=== PATIENT | female | born 1960 | race African-American/Black ===

== ENCOUNTER 2016-06-27 11:12 | Emergency (ER) | payer MEDICARE, OTHER ==
[~2016-06-27] VITALS: Ht 162.6 cm; Wt 88.0 kg
[~2016-06-27 11:12] MED LIST: AMIT50TA PO; CYCL10TA2 PO; HYDR-965 PO; HYDR12.58 PO; HYDR25TA PO; NAPR500T3 PO; PROM12.56 PO; TOPI-24 PO; TOPI15CA4 PO; TRAM-29 PO
--- NOTE | 2016-06-27 12:04 | EKG ---
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
[2016-06-27] MEDS ORDERED: HYDROCODONE/APAP 5/325MG TABLET. PO ONE (13:00)
[2016-06-27] MEDS ORDERED: ASPIRIN 81 MG TAB.CHEW PO ONE (13:00)
[2016-06-27] MEDS ORDERED: IPRATRPIUM/ALBUTEROL 0.5/2.5MG 3 ML NEBU. NEB ONE (13:00)
[2016-06-27 13:20] LABS: BASO % 0 % (0-3); EOS % 0 % (0-3); HEMATOCRIT 36.7 % (36.0-47.0); HEMOGLOBIN 12.4 g/dL (12.0-15.5); LYMPH # 1.8 x10^3/uL (1.0-4.8); LYMPH % 27 % (24-48); MEAN CORPUSCULAR HEMOGLOBIN 28 pg (25-35); MEAN CORPUSCULAR HGB CONC 34 g/dL (31-37); MEAN CORPUSCULAR VOLUME 83 fL (79-100); MONO % 9 % (0-9); NEUT % 63 % (31-73); PLATELET COUNT 217 x10^3/uL (140-400); RED BLOOD COUNT 4.43 x10^6/uL (3.50-5.40); RED CELL DISTRIBUTION WIDTH 13.4 % (11.5-14.5); WHITE BLOOD COUNT 6.7 x10^3/uL (4.0-11.0)
--- NOTE | 2016-06-27 13:24 | RAD ---
Indication chest pain. A single view of the chest was obtained. Comparison is made to an exam 04/25/2016. Heart and pulmonary vessels are normal. The mediastinum has a normal appearance. The lungs are clear. There has not been a significant change in the appearance of the chest compared to the previous exam. IMPRESSION: No acute or focal process. No significant change
[2016-06-27 13:37] LABS: CALCIUM 9.2 mg/dL (8.5-10.1); CREATININE 1.1 mg/dL (0.6-1.0); GFR 62.6; POTASSIUM 3.8 mmol/L (3.5-5.1)
[2016-06-27 13:40] LABS: ALBUMIN 3.1 g/dL (3.4-5.0); DIRECT BILIRUBIN 0.1 mg/dL (0.0-0.2); TOTAL BILIRUBIN 0.4 mg/dL (0.2-1.0); TOTAL PROTEIN 7.7 g/dL (6.4-8.2)
[2016-06-27 13:46] LABS: OBC FLU VALID
[2016-06-27 15:00] VITALS: BP 136/79
[2016-06-27] MEDS ORDERED: HYDR-2666 PO (15:05)
[2016-06-27] MEDS ORDERED: ASPI81TA2 PO (15:05)
--- NOTE | 2016-06-27 15:06 | PHYS DOC ---
Past Medical History Past Medical History: Anxiety, Arthritis, Hypertension Additional Past Medical Histor: osteoporosis, cystitis, DDD,RA,FIBROMYALGIA, Headaches Past Surgical History: Hysterectomy, Tubal ligation, Other Additional Past Surgical Histo: bladder sling Alcohol Use: Occasionally Drug Use: Marijuana Adult General Chief Complaint Chief Complaint: CHEST WALL PAIN HPI HPI 56-year-old female presenting to the emergency department with a cough for the past three days. She reports a sinus headache and chest pain that is sharp pleuritic and worse with the press. The pain is present for greater than 12 hours. It is intermittent and mild. It is nonradiating. She denies any unilateral leg swelling history of blood clotting disorders or family history blood clotting disorders. Review of Systems Review of Systems review of systems is negative for abdominal pain nausea vomiting fevers or chills. She denies history of blood clots. All other review of systems is negative. Current Medications Current Medications Current Medications Medications (Trade) Dose Ordered Sig/Soha Start Time Stop Time Status Last Admin Dose Admin Acetaminophen/ Hydrocodone Bitart (Lortab 5/325) 2 tab 1X ONCE 06/27/16 13:00 06/27/16 13:01 DC 06/27/16 13:07 2 TAB Albuterol/ Ipratropium (Duoneb) 3 ml 1X ONCE 06/27/16 13:00 06/27/16 13:01 DC 06/27/16 13:12 3 ML Aspirin (Children'S Aspirin) 324 mg 1X ONCE 06/27/16 13:00 06/27/16 13:01 DC 06/27/16 13:07 324 MG Allergies Allergies Allergies Coded Allergies Type Severity Reaction Last Updated Verified Penicillins Allergy Intermediate rash 05/18/13 Yes Sulfa (Sulfonamide Antibiotics) Allergy Intermediate rash 05/18/13 Yes Physical Exam Physical Exam Constitutional: Well developed, well nourished, no acute distress, non-toxic appearance. patient as well appearing in the emergency department with a nonproductive cough intermittently. HENT: Normocephalic, atraumatic, bilateral external ears normal, oropharynx moist, no oral exudates, nose normal. [] Eyes: PERRLA, EOMI, conjunctiva normal, no discharge. [] Neck: Normal range of motion, no tenderness, supple, no stridor. [] Cardiovascular:Heart rate regular rhythm, no murmur [] Lungs & Thorax: mild wheezing. No crackles. Abdomen: Bowel sounds normal, soft, no tenderness, no masses, no pulsatile masses. [] Skin: Warm, dry, no erythema, no rash. Back: No tenderness, no CVA tenderness. [] Extremities: No tenderness, no cyanosis, no clubbing, ROM intact, no edema. Neurologic: Alert and oriented X 3, normal motor function, normal sensory function, no focal deficits noted. [] Psychologic: Affect normal, judgement normal, mood normal. [] Current Patient Data Vital Signs Vital Signs Date Time Temp Pulse Resp B/P Pulse Ox O2 Delivery O2 Flow Rate FiO2 06/27/16 15:00 76 18 136/79 98 Room Air 06/27/16 11:37 97.8 97.8 Lab Values Laboratory Tests Test 06/27/16 12:55 06/27/16 13:10 Influenza Type A Antigen Negative (NEGATIVE) Influenza Type B Antigen Negative (NEGATIVE) White Blood Count 6.7x10^3/uL (4.0-11.0) Red Blood Count 4.43x10^6/uL (3.50-5.40) Hemoglobin 12.4g/dL (12.0-15.5) Hematocrit 36.7% (36.0-47.0) Mean Corpuscular Volume 83fL (79-100) Mean Corpuscular Hemoglobin 28pg (25-35) Mean Corpuscular Hemoglobin Concent 34g/dL (31-37) Red Cell Distribution Width 13.4% (11.5-14.5) Platelet Count 217x10^3/uL (140-400) Neutrophils (%) (Auto) 63% (31-73) Lymphocytes (%) (Auto) 27% (24-48) Monocytes (%) (Auto) 9% (0-9) Eosinophils (%) (Auto) 0% (0-3) Basophils (%) (Auto) 0% (0-3) Neutrophils # (Auto) 4.2x10^3uL (1.8-7.7) Lymphocytes # (Auto) 1.8x10^3/uL (1.0-4.8) Monocytes # (Auto) 0.6x10^3/uL (0.0-1.1) Eosinophils # (Auto) 0.0x10^3/uL (0.0-0.7) Basophils # (Auto) 0.0x10^3/uL (0.0-0.2) Sodium Level 144mmol/L (136-145) Potassium Level 3.8mmol/L (3.5-5.1) Chloride Level 109mmol/L (98-107) H Carbon Dioxide Level 30mmol/L (21-32) Anion Gap 5 (6-14) L Blood Urea Nitrogen 13mg/dL (7-20) Creatinine 1.1mg/dL (0.6-1.0) H Estimated GFR (Cockcroft-Gault) 62.6 Glucose Level 81mg/dL (70-99) Calcium Level 9.2mg/dL (8.5-10.1) Total Bilirubin 0.4mg/dL (0.2-1.0) Direct Bilirubin 0.1mg/dL (0.0-0.2) Aspartate Amino Transferase (AST) 29U/L (15-37) Alanine Aminotransferase (ALT) 52U/L (14-59) Alkaline Phosphatase 84U/L (46-116) Troponin I Quantitative < 0.017ng/mL (0.000-0.055) YN-Ksy-J-Type Natriuretic Peptide 15pg/mL (0-124) Total Protein 7.7g/dL (6.4-8.2) Albumin 3.1g/dL (3.4-5.0) L Lipase 104U/L (73-393) Laboratory Tests 06/27/16 13:10 Laboratory Tests 06/27/16 13:10 EKG EKG []EKG shows sinus rhythm with the regular rate. [place] is normal. Intervals are within normal limits. Patient has T wave inversions in the anterior leads. no previous available comparison at this time. Radiology/Procedures Radiology/Procedures []chest x-ray negative. Course & Med Decision Making Course & Med Decision Making Pertinent Labs and Imaging studies reviewed. (See chart for details) []56-year-old female presenting with a cough with pleuritic chest pain intermittently. On evaluation the patient's vital signs were unremarkable. Physical exam showed mild wheezing lungs. She was given nebulizer therapy in the emergency Department which improved her symptoms. bloodwork was obtained which showed normal CBC normal chemistry panel. Chest x-ray unremarkable. EKG showed nonspecific T wave inversions in the anterior leads. troponin negative. Patients pain is an present for greater than 12 hours. She was pain free on reevaluation. Patient was not hypoxic or tachycardic in our emergency department.on reevaluation, she was feeling better. She was then discharged home to follow up with her primary care physician for symptoms that are proven to the next two days. Dragon Disclaimer Dragon Disclaimer This electronic medical record was generated, in whole or in part, using a voice recognition dictation system. Departure Departure Impression: Primary Impression: Chest pain Additional Impression: Cough Disposition: HOME, SELF-CARE Condition: STABLE Referrals: YOLANDA HUNTER MD (PCP) Patient Instructions: Chest Pain (Nonspecific) Additional Instructions: Thank you for allowing us to participate in your care today. Followup with your primary care physician in 3 days if your symptoms do not improve. If you do not have a primary care provider you can ask for a list of our primary care providers. Return to the emergency department you have any new or concerning findings. This should be evaluated by the primary care physician and any necessary consulting services for continued management within a few days after discharge. Return to emergency room if you have any new or concerning symptoms including but not limited to fever, chills, nausea, vomiting, intractable pain, any new rashes, chest pain, shortness of air, uncontrolled bleeding, difficulty breathing, and/or vision loss. You may have been prescribed medication that can change in your level of thinking and ability to operate machinery. These medications include hydrocodone and Ativan. Also, Benadryl has been known to do this as well. Be sure to check with your pharmacist and ask if the medications you've prescribed can affect your level of consciousness. I recommend not operating heavy machinery or driving while on medication such as these. Scripts Hydrocodone Bit/Acetaminophen (Hydrocodone-Apap 5-325 )1 Each Tablet1 Tab PO PRN Q6HRS PRN PAIN #15 TAB Be careful as this medication may cause you to be drowsy or tired. Do not drive on this medication. Prov:MILTON TINEO MD 06/27/16 Aspirin 81 Mg Tab.chew1 Tab PO DAILY #14 TAB Ref 3 Prov:MILTON TINEO MD 06/27/16 Problem Qualifiers MILTON TINEO MD Jun 27, 2016 15:06
== END 2016-06-27 15:33 | disposition home or self-care (01) ==
LOC: ER 11:19
DX: R07.81 Pleurodynia (principal); R05 Cough; M19.90 Unspecified osteoarthritis, unspecified site; I10 Essential (primary) hypertension; M79.7 Fibromyalgia; F12.10 Cannabis abuse, uncomplicated; Z88.0 Allergy status to penicillin; Z88.2 Allergy status to sulfonamides
CPT/HCPCS: 36415; 71010; 80048; 80076; 83690; 83880; 84484; 85027; 87804; 93005; 94640; 99285; J7620

== ENCOUNTER 2016-11-27 23:21 | Emergency (ER) | payer MEDICARE, OTHER ==
[~2016-11-27] VITALS: Ht 162.6 cm; Wt 83.9 kg
[~2016-11-27 23:21] MED LIST changes: +ASPI-630 PO; +HYDR-2758 PO; -TOPI-24 PO; +TOPI25TA7 PO; -TRAM-29 PO; +TRAM-48 PO
[2016-11-27 23:49] VITALS: BP 145/76
[2016-11-28] MEDS ORDERED: BENZONATATE 100 MG CAPSULE. PO ONE (00:30)
[2016-11-28] MEDS ORDERED: AZIT250T6 PO (01:14)
[2016-11-28] MEDS ORDERED: FLUT9.9S NS (01:14)
[2016-11-28] MEDS ORDERED: BENZ100C PO (01:14)
--- NOTE | 2016-11-28 01:14 | PHYS DOC ---
Past Medical History Past Medical History: Anxiety, Arthritis, Hypertension Additional Past Medical Histor: osteoporosis, cystitis, DDD,RA,FIBROMYALGIA, Headaches Past Surgical History: Hysterectomy, Tubal ligation, Other Additional Past Surgical Histo: bladder sling Alcohol Use: Occasionally Drug Use: Marijuana Adult General Chief Complaint Chief Complaint: Congestion HPI HPI Patient is a 56 year old female who presents with cough & congestion. The patient reports symptoms x 2 weeks with cough productive of white sputum, nasal congestion, right ear pain, sore throat. She denies fever, shortness of breath , chest pain, vomiting, diarrhea. She has no history of lung disease or heart disease, nonsmoker. PCP is Dr. Hunter. Review of Systems Review of Systems Constitutional: Denies fever or chills Eyes: Denies change in visual acuity HENT: Reports nasal congestion and sore throat Respiratory: Reports cough, denies shortness of breath Cardiovascular: Denies chest pain or edema GI: Denies abdominal pain, nausea, vomiting Musculoskeletal: Denies back pain or joint pain Integument: Denies rash or skin lesions Neurologic: Denies headache Current Medications Current Medications Current Medications Medications (Trade) Dose Ordered Sig/Soha Start Time Stop Time Status Last Admin Dose Admin Benzonatate (Tessalon Perle) 100 mg 1X ONCE 11/28/16 00:30 11/28/16 00:31 DC 11/28/16 00:16 100 MG Allergies Allergies Allergies Coded Allergies Type Severity Reaction Last Updated Verified Penicillins Allergy Intermediate rash 05/18/13 Yes Sulfa (Sulfonamide Antibiotics) Allergy Intermediate rash 05/18/13 Yes Physical Exam Physical Exam Constitutional: Obese, no acute distress, non-toxic appearance. HENT: Normocephalic, atraumatic, bilateral external ears normal, TMs clear bilaterally no bulging or erythema, oropharynx moist, no tonsillar enlargement or exudate, nose normal. Eyes: PERRLA, EOMI, conjunctiva normal, no discharge. Neck: supple, no stridor. Cardiovascular: RRR, no murmurs, no edema. Lungs & Thorax: LCTAB, no wheezing, no respiratory distress. Abdomen: soft, nontender, nondistended. Skin: Warm, dry, no erythema, no rash. Back: No tenderness. Extremities: No tenderness, no edema. No calf tenderness or swelling. Neurologic: Alert and oriented X 3, no focal deficits noted. Psychologic: Affect normal, judgement normal, mood normal. Current Patient Data Vital Signs Vital Signs Date Time Temp Pulse Resp B/P (MAP) Pulse Ox O2 Delivery O2 Flow Rate FiO2 11/27/16 23:49 98.1 59 18 99 Room Air 98.1 EKG EKG [] Radiology/Procedures Radiology/Procedures CXR: interpreted by me: no cardiomegaly, no infiltrate, no pneumothorax.[] Course & Med Decision Making Course & Med Decision Making Pertinent Labs and Imaging studies reviewed. (See chart for details) The patient presents with cough & congestion. Gave tessalon perles here. CXR shows no evidence of pneumonia. O2 sat is 99% on room air. Due to duration of symptoms, will give z pack for acute bronchitis though we discussed this may still be viral. Will also give tessalon perles & flonase, recommend tylenol/ ibuprofen for pain or fever, encourage PO hydration. Follow up with PCP in 2-3 days. Come back for high fever, severe shortness of breath or chest pain, any otherwise worsening condition. Discharged home in stable condition. [] Dragon Disclaimer Dragon Disclaimer This electronic medical record was generated, in whole or in part, using a voice recognition dictation system. Departure Departure Impression: Primary Impression: Acute bronchitis Disposition: HOME, SELF-CARE Condition: STABLE Referrals: YOLANDA HUNTER MD (PCP) Patient Instructions: Acute Bronchitis, [id number] Additional Instructions: You seen in the emergency department today for cough. X-ray was normal, no pneumonia. Please take prescribed antibiotics for bronchitis. Drink fluids to stay hydrated, take Tylenol or ibuprofen for pain or fever. Use Flonase for nasal congestion and Tessalon Perles for cough. Follow-up with primary care physician if not improving in 2-3 days. Return to the emergency department for high fever, severe chest pain or shortness of breath, any otherwise worsening condition. Scripts Fluticasone Propionate (Flonase Allergy Relief) 9.9 Ml [place].susp 2 SPRAYS NS DAILY, #1 BOTTLE Prov: KASIA GRANT MD 11/28/16 Benzonatate (TESSALON PERLE) 100 Mg Capsule 100 MG PO TID Y for COUGH, #10 CAP Prov: KASIA GRANT MD 11/28/16 Azithromycin (AZITHROMYCIN TABLET) 250 Mg Tablet 1 PKG PO UD, #6 TAB Prov: KASIA GRANT MD 11/28/16 KASIA GRANT MD Nov 28, 2016 01:14
--- NOTE | 2016-11-28 07:56 | RAD ---
Indication cough. PA and lateral views of the chest were obtained and are compared to an examination 5 months earlier. The heart, pulmonary vessels and mediastinum appear normal. The lungs are clear. There is no pleural fluid or pneumothorax. The bony structures appear intact. There has not been a significant change relative to the previous exam. IMPRESSION: No acute or focal process. No significant change
== END 2016-11-28 01:19 | disposition home or self-care (01) ==
LOC: ER 23:21
DX: J20.9 Acute bronchitis, unspecified (principal); H92.01 Otalgia, right ear; I10 Essential (primary) hypertension; M06.9 Rheumatoid arthritis, unspecified; M79.7 Fibromyalgia; F12.10 Cannabis abuse, uncomplicated; Z90.710 Acquired absence of both cervix and uterus; Z98.51 Tubal ligation status; Z88.0 Allergy status to penicillin; Z88.2 Allergy status to sulfonamides
CPT/HCPCS: 71020; 99284

== ENCOUNTER 2017-06-08 09:51 | Emergency (ER) | payer OTHER, MEDICARE ==
[2017-06-08 10:35] LABS: BARBITURATES NEG (NEG); BENZODIAZEPINES NEG (NEG); CANNABINOIDS POS (NEG); COCAINE NEG (NEG); METHADONE NEG (NEG); OPIATES NEG (NEG); PHENCYCLIDINE NEG (NEG)
[2017-06-08 10:36] LABS: ETHANOL, URINE NEG (NEG)
[2017-06-08 10:37] LABS: ADD MAN DIFF? NO
[2017-06-08 10:41] LABS: BASO % 0 % (0-3); EOS % 1 % (0-3); HEMATOCRIT 37.7 % (36.0-47.0); HEMOGLOBIN 12.5 g/dL (12.0-15.5); LYMPH # 2.2 x10^3/uL (1.0-4.8); LYMPH % 33 % (24-48); MEAN CORPUSCULAR HEMOGLOBIN 28 pg (25-35); MEAN CORPUSCULAR HGB CONC 33 g/dL (31-37); MEAN CORPUSCULAR VOLUME 84 fL (79-100); MONO % 5 % (0-9); NEUT % 61 % (31-73); PLATELET COUNT 290 x10^3/uL (140-400); RED BLOOD COUNT 4.47 x10^6/uL (3.50-5.40); RED CELL DISTRIBUTION WIDTH 13.4 % (11.5-14.5); WHITE BLOOD COUNT 6.6 x10^3/uL (4.0-11.0)
[2017-06-08] MEDS: ONDANSETRON PF 4 MG/2 ML VIAL. IV (10:41)
[2017-06-08] MEDS: fentaNYL PF VIAL 100 MCG/2 ML VIAL IV (10:41)
[2017-06-08] MEDS: FAMOTIDINE 20 MG/2 ML VIAL IVP (10:41)
[2017-06-08 11:04] LABS: ANION GAP 11 (6-14); BLOOD UREA NITROGEN 15 mg/dL (7-20); BUN/CREATININE RATIO 19 (6-20); CALCIUM 9.3 mg/dL (8.5-10.1); CARBON DIOXIDE 25 mmol/L (21-32); CHLORIDE 105 mmol/L (98-107); CREATININE 0.8 mg/dL (0.6-1.0); GFR 90.1; GLUCOSE 94 mg/dL (70-99); SODIUM 141 mmol/L (136-145)
[2017-06-08 11:04] LABS: TROPONINI < 0.017 ng/mL (0.000-0.055)
[2017-06-08 11:05] LABS: ETHANOL < 10 mg/dL (0-10)
[2017-06-08 11:08] LABS: ALBUMIN 3.3 g/dL (3.4-5.0); ALBUMIN/GLOBULIN RATIO 0.7 (1.0-1.7); ALK PHOS 100 U/L (46-116); ALT (SGPT) 21 U/L (14-59); AST (SGOT) 15 U/L (15-37); TOTAL BILIRUBIN 0.5 mg/dL (0.2-1.0); TOTAL PROTEIN 7.8 g/dL (6.4-8.2)
== END 2017-06-08 12:40 | disposition home or self-care (01) ==
LOC: ER 09:51
DX: R11.2 Nausea with vomiting, unspecified (principal); R10.13 Epigastric pain; I10 Essential (primary) hypertension; M06.9 Rheumatoid arthritis, unspecified; M79.7 Fibromyalgia; F41.9 Anxiety disorder, unspecified; N30.10 Interstitial cystitis (chronic) without hematuria; F12.10 Cannabis abuse, uncomplicated; Z90.710 Acquired absence of both cervix and uterus; Z98.51 Tubal ligation status; Z88.0 Allergy status to penicillin; Z88.2 Allergy status to sulfonamides
CPT/HCPCS: 36415; 71010; 80053; 80307; 83690; 84484; 85025; 93005; 96374; 96375; 99285-25; G0480; J2405; J3010; S0028

== ENCOUNTER 2018-02-20 13:09 | Emergency (ER) | payer OTHER ==
[~2018-02-20] VITALS: Ht 162.6 cm; Wt 83.0 kg
[~2018-02-20 13:09] MED LIST changes: +AZIT250T6 PO; +BENZ100C PO; +FLUT9.9S NS; +NAPR-514 PO; -NAPR500T3 PO; +PANT20TA2 PO
[2018-02-20 13:20] VITALS: BP 129/80
[2018-02-20] MEDS ORDERED: HYDROcodone/APAP 5/325MG 1 TAB TABLET PO ONE (13:30)
[2018-02-20] MEDS ORDERED: HYDR-971 PO (13:32)
--- NOTE | 2018-02-20 13:33 | PHYS DOC ---
Past Medical History Past Medical History: Arthritis, Fibromyalgia, GERD, Migraines Additional Past Medical Histor: INTERSTITIAL CYSTITIS Past Surgical History: Hysterectomy, Other Additional Past Surgical Histo: BLADDER STRETCH Alcohol Use: Occasionally Drug Use: Marijuana Adult General Chief Complaint Chief Complaint: GENERALIZED BODY ACHES [facility] Patient is a 58 year old female who presents with exacerbation of her fibromyalgia. The patient states that her pain started increasing Monday night. She was taking her Flexeril and Tylenol with little relief. She states that it is worsened today. She is currently waiting to get into the rheumatology clinic for a referral. She denies urgency, burning or frequency with urination, although she is diagnosed with interstitial cystitis. She also has arthritis in her hips, lower back and knees. She states that these been bothering her greatly as well. Review of Systems Review of Systems Constitutional: Denies fever or chills [] Eyes: Denies change in visual acuity, redness, or eye pain [] HENT: Denies nasal congestion or sore throat [] Respiratory: Denies cough or shortness of breath [] Cardiovascular: No additional information not addressed in HPI [] GI: Denies abdominal pain, nausea, vomiting, bloody stools or diarrhea [] : Denies dysuria or hematuria [] Musculoskeletal: See history of present illness Integument: Denies rash or skin lesions [] Neurologic: Denies headache, focal weakness or sensory changes [] Endocrine: Denies polyuria or polydipsia [] All other systems were reviewed and found to be within normal limits, except as documented in this note. Current Medications Current Medications Current Medications Medications (Trade) Dose Ordered Sig/[facility] Start Time Stop Time Status Last Admin Dose Admin Acetaminophen/ Hydrocodone Bitart (Lortab 5/325) 1 tab 1X ONCE 02/20/18 13:30 02/20/18 13:31 UNV Allergies Allergies Allergies Coded Allergies Type Severity Reaction Last Updated Verified Penicillins Allergy Intermediate rash 08/07/17 Yes Sulfa (Sulfonamide Antibiotics) Allergy Intermediate rash 08/07/17 Yes Physical Exam Physical Exam Constitutional: Well developed, well nourished, no acute distress, non-toxic appearance. [] Neck: Normal range of motion, no tenderness, supple, no stridor. [] Cardiovascular:Heart rate regular rhythm, no murmur [] Lungs & Thorax: Bilateral breath sounds clear to auscultation [] Abdomen: Bowel sounds normal, soft, no tenderness, no masses, no pulsatile masses. [] Skin: Warm, dry, no erythema, no rash. [] Back: Generalized tenderness, no CVA tenderness. [] Extremities: Generalized tenderness, no cyanosis, no clubbing, ROM intact, no edema. [] Neurologic: Alert and oriented X 3, normal motor function, normal sensory function, no focal deficits noted. [] Psychologic: Affect normal, judgement normal, mood normal. [] Current Patient Data Vital Signs Vital Signs Date Time Temp Pulse Resp B/P (MAP) Pulse Ox O2 Delivery O2 Flow Rate FiO2 02/20/18 13:20 98.2 82 18 129/80 (96) 99 Room Air 98.2 EKG EKG [] Radiology/Procedures Radiology/Procedures [] Course & Med Decision Making Course & Med Decision Making Pertinent Labs and Imaging studies reviewed. (See chart for details) []The patient was given a dose of [place] in the emergency department. Dragon Disclaimer Dragon Disclaimer This electronic medical record was generated, in whole or in part, using a voice recognition dictation system. Departure Departure Impression: Primary Impression: Inadequate pain control Disposition: HOME, SELF-CARE Condition: STABLE Referrals: YOLANDA HUNTER MD (PCP) Patient Instructions: Fibromyalgia Additional Instructions: Take the medication as prescribed. Do not drive or operate heavy machinery while taking this medication. Follow-up with your primary care provider for further treatment of your chronic pain. If worsening return to the emergency department. Scripts Hydrocodone/Apap 5-325 (NORCO 5-325 TABLET) 1 Each Tablet 1-2 TAB PO Q4-6HRS, #20 TAB Prov: JENNIFER BERGMAN APRN 02/20/18 JENNIFER BERGMAN APRN Feb 20, 2018 13:32
== END 2018-02-20 14:01 | disposition home or self-care (01) ==
LOC: ER 13:09
DX: M79.7 Fibromyalgia (principal); M46.96 Unspecified inflammatory spondylopathy, lumbar region; M16.0 Bilateral primary osteoarthritis of hip; M17.0 Bilateral primary osteoarthritis of knee; G43.909 Migraine, unspecified, not intractable, without status migrainosus; K21.9 Gastro-esophageal reflux disease without esophagitis; Z88.0 Allergy status to penicillin; Z88.2 Allergy status to sulfonamides
CPT/HCPCS: 99283

== ENCOUNTER 2018-07-04 20:00 | Emergency (ER) | payer OTHER ==
[~2018-07-04] VITALS: Ht 160 cm; Wt 83.0 kg
[~2018-07-04 20:00] MED LIST changes: -HYDR-2758 PO; +HYDR-2761 PO; +HYDR-3164 PO; +HYDR-3165 PO; -HYDR-965 PO
[2018-07-04] MEDS ORDERED: PROCHLORPERAZINE 10 MG/2 ML VIAL. IV ONE (20:30)
[2018-07-04] MEDS ORDERED: diphenhydrAMINE 50 MG/ML VIAL IVP ONE (20:30)
--- NOTE | 2018-07-04 20:35 | PHYS DOC ---
Past Medical History Past Medical History: Arthritis, Fibromyalgia, GERD, Migraines Additional Past Medical Histor: INTERSTITIAL CYSTITIS Past Surgical History: Hysterectomy, Other Additional Past Surgical Histo: BLADDER STRETCH Alcohol Use: Occasionally Drug Use: Marijuana Adult General Chief Complaint Chief Complaint: DIZZY/LIGHT HEADED HPI HPI Patient is a 58 year old female who presents with vertigo symptoms. Patient was standing in her kitchen making dinner at about 4:00 this afternoon when she had sudden onset of vertigo. She felt like the room was spinning. Her symptoms cause her to feel nauseated and she had one episode of emesis. Since then, she has had no additional emesis but does continue to complain of nausea symptoms. She has never had similar symptoms in the past. She does describe a sensation of the room spinning and position changes make her symptoms worse. She has no shortness of breath. She has no flu symptoms. She has otherwise been at baseline health. Review of Systems Review of Systems Constitutional: Denies fever Eyes: Denies change in visual acuity HENT: Denies nasal congestion or sore throat Respiratory: Denies cough or shortness of breath Cardiovascular: No additional information not addressed in HPI GI: Denies abdominal pain, nausea : Denies dysuria Musculoskeletal: Denies back pain Integument: Denies rash or skin lesions Neurologic: Denies headache Endocrine: Denies polyuria All other systems were reviewed and found to be within normal limits, except as documented in this note. Current Medications Current Medications Current Medications Medications (Trade) Dose Ordered Sig/Soha Start Time Stop Time Status Last Admin Dose Admin Diphenhydramine HCl (Benadryl) 12.5 mg 1X ONCE 07/04/18 20:30 07/04/18 21:46 DC 07/04/18 21:25 12.5 MG Lorazepam (Ativan) 2 mg 1X ONCE 07/04/18 21:45 07/04/18 21:46 DC Meclizine HCl (Antivert) 25 mg 1X ONCE 07/04/18 22:00 07/04/18 22:01 DC 07/04/18 22:22 25 MG Prochlorperazine Edisylate (Compazine) 10 mg 1X ONCE 07/04/18 20:30 07/04/18 20:31 DC 07/04/18 21:25 10 MG Sodium Chloride 1,000 ml @ 1,000 mls/hr 1X ONCE 07/04/18 22:00 07/04/18 22:59 DC 07/04/18 22:22 1,000 MLS/HR Allergies Allergies Allergies Coded Allergies Type Severity Reaction Last Updated Verified Penicillins Allergy Intermediate rash 08/07/17 Yes Sulfa (Sulfonamide Antibiotics) Allergy Intermediate rash 08/07/17 Yes Physical Exam Physical Exam Constitutional: Well developed, well nourished, no acute distress, non-toxic appearance HENT: Normocephalic, atraumatic, bilateral external ears normal, oropharynx moist Eyes: PERRLA, EOMI, conjunctiva normal Neck: Normal range of motion, no tenderness Cardiovascular:Heart rate regular rhythm, no murmur Lungs & Thorax: Bilateral breath sounds clear to auscultation Abdomen: Bowel sounds normal, soft, no tenderness Skin: Warm, dry, no erythema, no rash Extremities: No edema Neurologic: Alert and oriented X 3, normal motor function, normal sensory function, fatigable nystagmus to the right with testing. no nystagmus at rest or with visual fixation Psychologic: Affect normal Current Patient Data Vital Signs Vital Signs Date Time Temp Pulse Resp B/P (MAP) Pulse Ox O2 Delivery O2 Flow Rate FiO2 07/04/18 23:38 61 16 99 07/04/18 20:00 97.5 186/89 (121) Room Air 97.5 Lab Values Laboratory Tests Test 07/04/18 20:30 07/04/18 21:29 07/04/18 22:35 White Blood Count 9.2 x10^3/uL (4.0-11.0) Red Blood Count 3.94 x10^6/uL (3.50-5.40) Hemoglobin 10.8 g/dL (12.0-15.5) L Hematocrit 32.2 % (36.0-47.0) L Mean Corpuscular Volume 82 fL (79-100) Mean Corpuscular Hemoglobin 28 pg (25-35) Mean Corpuscular Hemoglobin Concent 34 g/dL (31-37) Red Cell Distribution Width 14.6 % (11.5-14.5) H Platelet Count 239 x10^3/uL (140-400) Neutrophils (%) (Auto) 70 % (31-73) Lymphocytes (%) (Auto) 24 % (24-48) Monocytes (%) (Auto) 5 % (0-9) Eosinophils (%) (Auto) 1 % (0-3) Basophils (%) (Auto) 0 % (0-3) Neutrophils # (Auto) 6.5 x10^3uL (1.8-7.7) Lymphocytes # (Auto) 2.2 x10^3/uL (1.0-4.8) Monocytes # (Auto) 0.4 x10^3/uL (0.0-1.1) Eosinophils # (Auto) 0.1 x10^3/uL (0.0-0.7) Basophils # (Auto) 0.0 x10^3/uL (0.0-0.2) Sodium Level 143 mmol/L (136-145) Potassium Level 3.3 mmol/L (3.5-5.1) L Chloride Level 106 mmol/L (98-107) Carbon Dioxide Level 28 mmol/L (21-32) Anion Gap 9 (6-14) Blood Urea Nitrogen 18 mg/dL (7-20) Creatinine 0.9 mg/dL (0.6-1.0) Estimated GFR (Cockcroft-Gault) 78.4 Glucose Level 99 mg/dL (70-99) Calcium Level 9.4 mg/dL (8.5-10.1) Troponin I Quantitative < 0.017 ng/mL (0.000-0.055) Urine Collection Type Unknown Urine Color Yellow Urine Clarity Cloudy Urine pH 7.5 Urine Specific [place] 1.015 Urine Protein Negative mg/dL (NEG-TRACE) Urine Glucose (UA) Negative mg/dL (NEG) Urine Ketones (Stick) Negative mg/dL (NEG) Urine Blood Large (NEG) Urine Nitrite Negative (NEG) Urine Bilirubin Negative (NEG) Urine Urobilinogen Dipstick 1.0 mg/dL (0.2 mg/dL) Urine Leukocyte Esterase Negative (NEG) Urine RBC 6-10 /HPF (0-2) Urine WBC 0 /HPF (0-4) Urine Squamous Epithelial Cells Few /LPF Urine Amorphous Sediment Present /HPF Urine Bacteria 0 /HPF (0-FEW) Influenza Type A Antigen Negative (NEGATIVE) Influenza Type B Antigen Negative (NEGATIVE) Laboratory Tests 07/04/18 20:30 Laboratory Tests 07/04/18 20:30 EKG EKG No STEMI Interpretation Time: 20:15 Radiology/Procedures Radiology/Procedures CT Head: No acute findings Course & Med Decision Making Course & Med Decision Making Pertinent Labs and Imaging studies reviewed. (See chart for details) 20:30: Patient seen and examined. C/o only of feeling like the room is spinning. No CP, dyspnea, palpitations. EKG is unchanged from prior. Compazine/benadryl ordered. IVF's. Patient was evaluated in the emergency department for dizziness and some vertigo symptoms. She had a head CT which was normal. The rest of her lab panel is unremarkable. Her EKG was normal. Her troponin was not elevated. She was initially given Compazine which did not offer relief of her symptoms. Following that, she was given some hydroxyzine. The patient was only mildly relieved with this. She was ambulated about the department however and had a normal steady gait. She was discharged to home and advised to contact her primary care doctor tomorrow for close follow-up appointment. Her neurologic exam was normal today. She was given some meclizine to use at home. Dragon Disclaimer Dragon Disclaimer This electronic medical record was generated, in whole or in part, using a voice recognition dictation system. Departure Departure Disposition: HOME, SELF-CARE Condition: GOOD Referrals: YOLANDA HUNTER MD (PCP) Scripts Meclizine Hcl (MECLIZINE HCL) 25 Mg Tablet 25 MG PO PRN TID PRN for dizziness, #30 dizziness Prov: BRICE LEAL DO 07/05/18 BRICE LEAL DO Jul 04, 2018 20:35
[2018-07-04 20:41] LABS: BASO % 0 % (0-3); EOS # 0.1 x10^3/uL (0.0-0.7); EOS % 1 % (0-3); HEMATOCRIT 32.2 % (36.0-47.0); HEMOGLOBIN 10.8 g/dL (12.0-15.5); LYMPH # 2.2 x10^3/uL (1.0-4.8); LYMPH % 24 % (24-48); MEAN CORPUSCULAR HEMOGLOBIN 28 pg (25-35); MEAN CORPUSCULAR HGB CONC 34 g/dL (31-37); MEAN CORPUSCULAR VOLUME 82 fL (79-100); MONO # 0.4 x10^3/uL (0.0-1.1); MONO % 5 % (0-9); NEUT # 6.5 x10^3uL (1.8-7.7); NEUT % 70 % (31-73); PLATELET COUNT 239 x10^3/uL (140-400); RED BLOOD COUNT 3.94 x10^6/uL (3.50-5.40); RED CELL DISTRIBUTION WIDTH 14.6 % (11.5-14.5); WHITE BLOOD COUNT 9.2 x10^3/uL (4.0-11.0)
[2018-07-04 21:00] LABS: CALCIUM 9.4 mg/dL (8.5-10.1); CREATININE 0.9 mg/dL (0.6-1.0); GFR 78.4; POTASSIUM 3.3 mmol/L (3.5-5.1)
[2018-07-04 21:39] LABS: BILIRUBIN,URINE NEGATIVE (NEG); CLARITY,URINE CLOUDY; COLOR,URINE YELLOW; NITRITE,URINE NEGATIVE (NEG); PH,URINE 7.5; PROTEIN,URINE NEGATIVE (NEG-TRACE)
[2018-07-04 21:44] LABS: AMORPHOUS SEDIMENT,UR PRESENT /HPF; BACTERIA,URINE 0 /HPF (0-FEW); SQUAMOUS EPITHELIAL CELL,UR FEW /LPF; WBC,URINE 0 /HPF (0-4)
[2018-07-04] MEDS ORDERED: MECLIZINE HCL 12.5 MG TABLET. PO ONE (22:00)
[2018-07-04] MEDS ORDERED: IV NORMAL SALINE 1000ML BAG 1,000 ML IV ONE (22:00)
--- NOTE | 2018-07-04 22:53 | RAD ---
Examination: CT HEAD WO CONTRAST History: DIZZINESS Comparison/Correlation: None Findings: Axial images of the head were obtained without contrast. Ventricles are normal size. No intracranial hemorrhage, midline shift, or mass effect. No depressed fracture. Impression: No acute process. Electronically signed by: Yaakov Kline MD (07/04/2018 10:49 PM) [facility]
[2018-07-04 23:01] LABS: INFLUENZA A PATIENT NEGATIVE (NEGATIVE); INFLUENZA B PATIENT NEGATIVE (NEGATIVE)
[2018-07-04 23:38] VITALS: BP 141/68
[2018-07-05] MEDS ORDERED: MECL25TA3 PO (00:03)
--- NOTE | 2018-07-05 06:23 | EKG ---
[facility] [address] [place] [address] Test Date: 2018-07-04 Test Time: 20:13:46 Pat Name: GIBSON EID Department: Room: Gender: F [employer]: : 1960 Requested By: BRICE LEAL Order Number: [id number] Reading MD: Measurements Intervals [place] Rate: 66 P: 41 [place]: 172 QRS: 8 QRSD: 98 T: 33 QT: 402 QTc: 423 Interpretive Statements SINUS RHYTHM NORMAL ECG RI6.01 No previous ECG available for comparison
== END 2018-07-05 00:44 | disposition home or self-care (01) ==
LOC: ER 20:00
DX: R42 Dizziness and giddiness (principal); R11.2 Nausea with vomiting, unspecified; M19.90 Unspecified osteoarthritis, unspecified site; M79.7 Fibromyalgia; K21.9 Gastro-esophageal reflux disease without esophagitis; G43.909 Migraine, unspecified, not intractable, without status migrainosus; Z88.0 Allergy status to penicillin; Z88.2 Allergy status to sulfonamides
CPT/HCPCS: 36415; 70450; 80048; 81001; 84484; 85025; 87804; 93005; 96374; 96375; 99284; J0780; J1200; J7030; J8597

== ENCOUNTER 2018-09-06 09:19 | Emergency (ER) | payer OTHER ==
[~2018-09-06] VITALS: Ht 162.6 cm; Wt 82.1 kg
[~2018-09-06 09:19] MED LIST changes: +MECL25TA3 PO; -PROM12.56 PO; +PROM12.58 PO
--- NOTE | 2018-09-06 09:43 | PHYS DOC ---
Past Medical History Past Medical History: Arthritis, Fibromyalgia, GERD, Migraines, Other Additional Past Medical Histor: INTERSTITIAL CYSTITIS,CHRONIC PAIN Past Surgical History: Hysterectomy, Other Additional Past Surgical Histo: BLADDER STRETCH Alcohol Use: Occasionally Drug Use: Marijuana Adult General Chief Complaint Chief Complaint: LOWER EXT PAIN [facility] HPI Patient is a 58 year old female who walked in by EMS because of left lower extremity pain. Patient complaining of gradual onset of left lower extremity pain for the last 4 days as a constant pain that getting worse with activity and bearing weight. Patient rated her pain 10 over 10 and states she took over- the-counter ibuprofen and hydrocodone and Flexeril that usually takes for her arthritis without improvement of her pain. Patient denies new paresthesias or weakness of her leg, history of PE and DVT, recent immobilization, shortness of breath and chest pain, fever and chills. Review of Systems Review of Systems Constitutional: Denies fever or chills [] Eyes: Denies change in visual acuity, redness, or eye pain [] HENT: Denies nasal congestion or sore throat [] Respiratory: Denies cough or shortness of breath [] Cardiovascular: No additional information not addressed in HPI [] GI: Denies abdominal pain, nausea, vomiting, bloody stools or diarrhea [] : Denies dysuria or hematuria [] Musculoskeletal: Denies back pain, reports joint pain [] Integument: Denies rash or skin lesions [] Neurologic: Denies headache, focal weakness or sensory changes [] Endocrine: Denies polyuria or polydipsia [] All other systems were reviewed and found to be within normal limits, except as documented in this note. Current Medications Current Medications Current Medications Medications (Trade) Dose Ordered Sig/Soha Start Time Stop Time Status Last Admin Dose Admin Ketorolac Tromethamine (Toradol Im) 60 mg 1X ONCE 09/06/18 09:45 09/06/18 09:46 DC 09/06/18 10:51 60 MG Allergies Allergies Allergies Coded Allergies Type Severity Reaction Last Updated Verified Penicillins Allergy Intermediate rash 08/07/17 Yes Sulfa (Sulfonamide Antibiotics) Allergy Intermediate rash 08/07/17 Yes Physical Exam Physical Exam Constitutional: Well developed, well nourished, mild distress, non-toxic appearance. [] HENT: Normocephalic, atraumatic. Eyes: PERRLA, EOMI, conjunctiva normal, no discharge. [] Neck: Normal range of motion, no tenderness, supple, no stridor. [] Cardiovascular:Heart rate regular rhythm, no murmur [] Lungs & Thorax: Bilateral breath sounds clear to auscultation [] Back: No tenderness, no CVA tenderness. [] Extremities: No deformity or edema, no tenderness, no cyanosis, no clubbing, ROM intact, no edema. [] Neurologic: Alert and oriented X 3, normal motor function, normal sensory function, no focal deficits noted. [] Psychologic: Affect anxious, judgement normal, mood normal. [] Current Patient Data Vital Signs Vital Signs Date Time Temp Pulse Resp B/P (MAP) Pulse Ox O2 Delivery O2 Flow Rate FiO2 09/06/18 09:19 98.1 81 16 157/90 (112) 98 Room Air 98.1 EKG EKG [] Radiology/Procedures Radiology/Procedures [facility] [address] [place], [place] [id number] IMAGING REPORT Signed PATIENT: GIBSON EID ACCOUNT: [id number] : 1960 LOCATION: ER AGE: 58 SEX: F EXAM STATUS: REG ER ORD. PHYSICIAN: BRYANNA PETERSEN MD REASON: pain for 4 days PROCEDURE: VENOUS LOWER EXTREMITY LEFT LEFT LOWER EXTREMITY ULTRASOUND WITH DOPPLER 09/06/2018 10:01 AM Clinical Information: Pain for 4 days. Comparison: None. Technique: Multiple grayscale, color Doppler, and spectral Doppler sonographic images of the lower extremity venous structures were obtained. Findings: Left groin lymph node measures 1.9 x 0.4 x 1.3 cm. This lymph node appears morphologically normal with normal fatty hilum. There may be fatty atrophy of the medial muscle compartments of the upper thighs. Greater saphenous vein is patent. The left common femoral, femoral, and popliteal veins exhibit normal compression, respiratory phasicity, and augmentation. No intraluminal thrombi are identified. Color Doppler flow is demonstrated in the left posterior tibial vein. Impression: 1. No evidence of deep venous thrombosis. 2. Morphologically normal left groin lymph node measuring 1.9 x 0.4 x 1.3 cm, likely reactive. Electronically signed by: Maren Dawkins MD (09/06/2018 10:41 AM) [facility] DICTATED and SIGNED BY: MAREN DAWKINS MD DATE: 09/06/18 1041 [facility] [address] [place] [address] IMAGING REPORT Signed PATIENT: GIBSON EID ACCOUNT: [id number] : 1960 LOCATION: ER AGE: 58 SEX: F EXAM STATUS: REG ER ORD. PHYSICIAN: BRYANNA PETERSEN MD REASON: left lower extremity and thigh pain PROCEDURE: HIP LEFT 2V WITH PELVIS EXAM: Pelvis and left hip, 2 views. HISTORY: Pain. COMPARISON: None. FINDINGS: A frontal view the pelvis and frontal and frog-leg views left hip are obtained. There is no fracture, dislocation or subluxation. There are changes due to suspected osteitis pubis. IMPRESSION: No acute osseous finding. Changes due to suspected osteitis pubis. Electronically signed by: Gracie Hensley MD (09/06/2018 10:30 AM) [facility] DICTATED and SIGNED BY: GRACIE HENSLEY MD DATE: 09/06/18 1030 Course & Med Decision Making Course & Med Decision Making Pertinent Imaging studies reviewed. (See chart for details) discharge: I've spoken with the patient and/or caregivers. I've explained the patient's condition, diagnosis and treatment plan based on information available to me at this time. I've answered the patient's and/or caregivers questions and addressed any concerns. The patient and/or caregivers have a good understanding the patient's diagnosis, condition and treatment plan as can be expected at this point. Vital signs have been stabilized. The patient's condition is stable for discharge from the emergency department. The patient will pursue further outpatient evaluation with her primary care provider or other designated consulting physician as outlined in the discharge instructions. Patient and/or caregivers are agreeable to this plan of care and follow-up instructions have been explained in detail. The patient and/or caregivers have received these instructions in written format and expressed understanding of these discharge instructions. The patient and her caregivers are aware that if any significant change in condition or worsening of symptoms should prompt him to immediately return to this of the closest emergency department. If an emergent department is not readily available I would encourage him to call 911. Ricki Disclaimer Ricki Disclaimer This electronic medical record was generated, in whole or in part, using a voice recognition dictation system. Departure Departure Impression: Primary Impression: Arthritis of left lower extremity Disposition: HOME, SELF-CARE (at 1104) Condition: IMPROVED Referrals: YOLANDA HUNTER MD (PCP) Patient Instructions: Arthritis, Nonspecific Additional Instructions: Apply ice on the affected area Follow-up with your primary care physician in 3-5 days Return to ER if not getting better Continue home hydrocodone, Flexeril, ibuprofen Scripts Methylprednisolone (MEDROL) 4 Mg Tab.ds.pk 1 PKG PO UD for inflammation, #1 PKG Prov: BRYANNA PETERSEN MD 09/06/18 BRYANNA PETERSEN MD Sep 06, 2018 09:43
[2018-09-06] MEDS ORDERED: KETOROLAC 60 MG/2 ML VIAL. IM ONE (09:45)
--- NOTE | 2018-09-06 10:34 | RAD ---
EXAM: Pelvis and left hip, 2 views. HISTORY: Pain. COMPARISON: None. FINDINGS: A frontal view the pelvis and frontal and frog-leg views left hip are obtained. There is no fracture, dislocation or subluxation. There are changes due to suspected osteitis pubis. IMPRESSION: No acute osseous finding. Changes due to suspected osteitis pubis. Electronically signed by: Gracie Sifuentes MD (09/06/2018 10:30 AM) [id number]
--- NOTE | 2018-09-06 10:44 | RAD ---
LEFT LOWER EXTREMITY ULTRASOUND WITH DOPPLER 09/06/2018 10:01 AM Clinical Information: Pain for 4 days. Comparison: None. Technique: Multiple grayscale, color Doppler, and spectral Doppler sonographic images of the lower extremity venous structures were obtained. Findings: Left groin lymph node measures 1.9 x 0.4 x 1.3 cm. This lymph node appears morphologically normal with normal fatty hilum. There may be fatty atrophy of the medial muscle compartments of the upper thighs. Greater saphenous vein is patent. The left common femoral, femoral, and popliteal veins exhibit normal compression, respiratory phasicity, and augmentation. No intraluminal thrombi are identified. Color Doppler flow is demonstrated in the left posterior tibial vein. Impression: 1. No evidence of deep venous thrombosis. 2. Morphologically normal left groin lymph node measuring 1.9 x 0.4 x 1.3 cm, likely reactive. Electronically signed by: Lizett Loja MD (09/06/2018 10:41 AM) [id number]
[2018-09-06] MEDS ORDERED: METH4TAB2 PO (11:05)
[2018-09-06 11:32] VITALS: BP 149/80
== END 2018-09-06 11:35 | disposition home or self-care (01) ==
LOC: ER 09:19
DX: M13.88 Other specified arthritis, other site (principal); M79.605 Pain in left leg; M25.552 Pain in left hip; K21.9 Gastro-esophageal reflux disease without esophagitis; G43.909 Migraine, unspecified, not intractable, without status migrainosus; Z88.0 Allergy status to penicillin; Z88.2 Allergy status to sulfonamides
CPT/HCPCS: 73502; 93971; 96372; 99284; J1885

== ENCOUNTER → 2018-09-25 | Outpatient (CLI) | payer OTHER ==
[2018-09-06 11:32] VITALS: BP 149/80
[~2018-09-25] MED LIST changes: +GADOBUTROL 7.5 MMOL/7.5 ML VIAL IV ONE; +METH4TAB2 PO
--- NOTE | 2018-09-25 10:20 | RAD ---
MRI Lumbar Spine without contrast History: Chronic low back pain with worsening left leg radiculopathy, left weakness, left foot numbness Technique: Multiplanar, multi sequential noncontrast MR imaging was performed of the lumbar spine. Comparison: September 30, 2014 Findings: Lumbar vertebral body stature and AP alignment are preserved. There is no significant marrow edema. Conus terminates at L1. Intervertebral disc spaces are maintained. As seen previously, there is buckling of the ligamentum flavum at the visualized T12-L1 and T11-12 levels. L1-L2 L2-3: These levels were not included on the axial images. Spinal canal and neural foramina are adequate as seen on sagittal images. L3-L4: Neural foramina and spinal canal are adequate. L4-L5: Neural foramina and spinal canal are adequate. L5-S1: Spinal canal and neural foramina are adequate. Impression: 1. There is no new significant lumbar spinal stenosis or neural foramina compromise. Electronically signed by: Luiz Hull MD (09/25/2018 10:17 AM) [id number]
--- NOTE | 2018-09-25 12:11 | RAD ---
MRI Brain with and without contrast History: Worsening headaches, left-sided weakness Technique: Multiplanar, multi sequential pre and postcontrast MR imaging was performed of the brain. Comparison: None Findings: There is no evidence of recent infarct or cytotoxic edema. The ventricles, sulci, and cisterns are within normal limits in size and configuration. There is no significant midline shift, intraaxial mass effect, or focal abnormal extra-axial fluid collection. There are several tiny scattered foci of nonenhancing T2 and FLAIR hyperintense signal of the supratentorial white matter bilaterally. There is no nodular parenchymal or leptomeningeal enhancement. There is preservation of the major intracranial flow-voids at the skull base. The cerebellar tonsils are normal in location. There is no significant abnormality of the pineal gland or pituitary gland. There is slightly disconjugate gaze. There is some herniation of fat into the lateral aspect of the left ethmoid air cells may be due to sequela of previous left lamina papyracea fracture. Otherwise paranasal sinuses are overall aerated. There is very minimal patchy fluid and thickening of the mastoid air cells bilaterally.There is preserved marrow signal of the clivus. Impression: 1. There is no evidence of recent infarct or abnormal intracranial enhancement. There are several scattered tiny foci of nonspecific, nonenhancing T2 and FLAIR hyperintense signal of the supratentorial white matter. Findings could be due to chronic microvascular ischemic disease especially if risk factors such as hypertension or diabetes. Pattern is not particularly suggestive of an inflammatory demyelinating disease. White matter changes can be seen in patients with migraine headaches if corresponding history. Electronically signed by: Luiz Hull MD (09/25/2018 12:08 PM) [id number]
== END | disposition home or self-care (01) ==
LOC: MRI 09:04
PROVIDERS: ATTEND Family Medicine
DX: R53.1 Weakness (principal); R20.8 Other disturbances of skin sensation
CPT/HCPCS: 70553; 72148; A9585

== ENCOUNTER 2019-03-09 20:12 | Emergency (ER) | payer OTHER, MEDICAID ==
[~2019-03-09] VITALS: Ht 162.6 cm; Wt 83.9 kg
[~2019-03-09 20:12] MED LIST changes: -GADOBUTROL 7.5 MMOL/7.5 ML VIAL IV ONE
[2019-03-09] MEDS ORDERED: ORPHENADRINE CITRATE 60 MG/2 ML VIAL. IV ONE (21:00)
[2019-03-09] MEDS ORDERED: NITROGLYCERIN SUBLINGUAL 0.4 MG BOTTLE OF 25. SL ONE (21:00)
--- NOTE | 2019-03-09 21:00 | RAD ---
Chest radiograph 03/09/2019 8:13 PM INDICATION: Chest pain COMPARISON: 06/08/2017 TECHNIQUE: Chest pain FINDINGS: The cardiomediastinal silhouette is within normal limits. There are no pleural effusions. There is no pulmonary vascular congestion. There is no pneumothorax. The lungs are clear. No significant osseous abnormality is identified. IMPRESSION: No acute cardiopulmonary process. Electronically signed by: Lizett Loja MD (03/09/2019 8:57 PM) [id number]
--- NOTE | 2019-03-09 21:08 | PHYS DOC ---
Past Medical History Past Medical History: Arthritis, Fibromyalgia, GERD, Migraines, Other Additional Past Medical Histor: INTERSTITIAL CYSTITIS,CHRONIC PAIN Past Surgical History: Hysterectomy, Other Additional Past Surgical Histo: BLADDER STRETCH Alcohol Use: Occasionally Drug Use: Marijuana Adult General Chief Complaint Chief Complaint: CHEST PAIN [facility] HPI Patient is a 59 year old female who presents via EMS with complaining of chest pain. Patient complaining of left upper chest pain since she woke at 8 AM today as a constant pain with episodes of stabbing pain that lasts for few seconds. Patient rated her pain 10 in the morning and 9 at arrival to ER. Patient states she took 4 aspirin and 2 Advil. patient denies shortness of breath, nausea, dizziness, palpitation, radiation of pain, change of pain with activity, history of chest pain. Patient states she had muscle spasm in bilateral lower extremity during episodes of sharp chest pain and usually takes Flexeril for this pain. Review of Systems Review of Systems Constitutional: Denies fever or chills [] Eyes: Denies change in visual acuity, redness, or eye pain [] HENT: Denies nasal congestion or sore throat [] Respiratory: Denies cough or shortness of breath [] Cardiovascular: No additional information not addressed in HPI [] GI: Denies abdominal pain, nausea, vomiting, bloody stools or diarrhea [] : Denies dysuria or hematuria [] Musculoskeletal: Denies back pain or joint pain [] Integument: Denies rash or skin lesions [] Neurologic: Denies headache, focal weakness or sensory changes [] Endocrine: Denies polyuria or polydipsia [] All other systems were reviewed and found to be within normal limits, except as documented in this note. Current Medications Current Medications Current Medications Medications (Trade) Dose Ordered Sig/Soha Start Time Stop Time Status Last Admin Dose Admin Ketorolac Tromethamine (Toradol 30mg Vial) 30 mg 1X ONCE 03/09/19 22:15 03/09/19 22:16 UNV Nitroglycerin (Nitrostat) 0.4 mg 1X ONCE 03/09/19 21:00 03/09/19 21:01 DC 03/09/19 20:51 0.4 MG Orphenadrine Citrate (Norflex) 60 mg 1X ONCE 03/09/19 21:00 03/09/19 21:01 DC 03/09/19 21:06 60 MG Allergies Allergies Allergies Coded Allergies Type Severity Reaction Last Updated Verified Penicillins Allergy Intermediate rash 08/07/17 Yes Sulfa (Sulfonamide Antibiotics) Allergy Intermediate rash 08/07/17 Yes Physical Exam Physical Exam Constitutional: Well developed, well nourished, mild distress, non-toxic appearance. [] HENT: Normocephalic, atraumatic. Eyes: PERRLA, EOMI, conjunctiva normal, no discharge. [] Neck: Normal range of motion, no tenderness, supple, no stridor. [] Cardiovascular:Heart rate regular rhythm, no murmur [] Lungs & Thorax: Bilateral breath sounds clear to auscultation [] Abdomen: Bowel sounds normal, soft, no tenderness, no masses, no pulsatile masses. [] Skin: Warm, dry, no erythema, no rash. [] Back: No tenderness, no CVA tenderness. [] Extremities: No tenderness, no cyanosis, no clubbing, ROM intact, no edema. [] Neurologic: Alert and oriented X 3, no focal deficits noted. [] Psychologic: Affect normal, judgement normal, mood normal. [] Current Patient Data Vital Signs Vital Signs Date Time Temp Pulse Resp B/P (MAP) Pulse Ox O2 Delivery O2 Flow Rate FiO2 03/09/19 20:51 72 126/75 03/09/19 20:12 98.2 22 99 Room Air 98.2 Lab Values Laboratory Tests Test 03/09/19 20:55 White Blood Count 8.7 x10^3/uL (4.0-11.0) Red Blood Count 3.91 x10^6/uL (3.50-5.40) Hemoglobin 11.3 g/dL (12.0-15.5) L Hematocrit 32.4 % (36.0-47.0) L Mean Corpuscular Volume 83 fL (79-100) Mean Corpuscular Hemoglobin 29 pg (25-35) Mean Corpuscular Hemoglobin Concent 35 g/dL (31-37) Red Cell Distribution Width 14.2 % (11.5-14.5) Platelet Count 256 x10^3/uL (140-400) Neutrophils (%) (Auto) 67 % (31-73) Lymphocytes (%) (Auto) 26 % (24-48) Monocytes (%) (Auto) 5 % (0-9) Eosinophils (%) (Auto) 1 % (0-3) Basophils (%) (Auto) 1 % (0-3) Neutrophils # (Auto) 5.9 x10^3/uL (1.8-7.7) Lymphocytes # (Auto) 2.2 x10^3/uL (1.0-4.8) Monocytes # (Auto) 0.5 x10^3/uL (0.0-1.1) Eosinophils # (Auto) 0.1 x10^3/uL (0.0-0.7) Basophils # (Auto) 0.1 x10^3/uL (0.0-0.2) Prothrombin Time 12.3 SEC (11.7-14.0) Prothrombin Time INR 0.9 (0.8-1.1) Sodium Level 141 mmol/L (136-145) Potassium Level 4.1 mmol/L (3.5-5.1) Chloride Level 106 mmol/L (98-107) Carbon Dioxide Level 27 mmol/L (21-32) Anion Gap 8 (6-14) Blood Urea Nitrogen 18 mg/dL (7-20) Creatinine 1.2 mg/dL (0.6-1.0) H Estimated GFR (Cockcroft-Gault) 56.0 BUN/Creatinine Ratio 15 (6-20) Glucose Level 114 mg/dL (70-99) H Calcium Level 9.6 mg/dL (8.5-10.1) Magnesium Level 1.9 mg/dL (1.8-2.4) Total Bilirubin 0.4 mg/dL (0.2-1.0) Aspartate Amino Transferase (AST) 17 U/L (15-37) Alanine Aminotransferase (ALT) 20 U/L (14-59) Alkaline Phosphatase 79 U/L (46-116) Creatine Kinase 99 U/L (26-192) Troponin I Quantitative < 0.017 ng/mL (0.000-0.055) IW-Xkt-A-Type Natriuretic Peptide 35 pg/mL (0-124) Total Protein 7.5 g/dL (6.4-8.2) Albumin 3.4 g/dL (3.4-5.0) Albumin/Globulin Ratio 0.8 (1.0-1.7) L Lipase 165 U/L (73-393) Laboratory Tests 03/09/19 20:55 Laboratory Tests 03/09/19 20:55 EKG EKG EKG interpreted by me. EKG at 2016 showed normal sinus rhythm at rate of 74, ab normal right axis deviation, inverted T in lateral and inferior leads the same as previous EKG dated 07/04/2018, no acute ST and T-wave elevation. Radiology/Procedures Radiology/Procedures [][facility] [address] [place] [address] IMAGING REPORT Signed PATIENT: GIBSON EID ACCOUNT: [id number] : 1960 LOCATION: ER AGE: 59 SEX: F EXAM STATUS: PRE ER ORD. PHYSICIAN: BRYANNA PETERSEN MD REASON: chest pain PROCEDURE: PORTABLE CHEST 1V Chest radiograph 03/09/2019 8:13 PM INDICATION: Chest pain COMPARISON: 06/08/2017 TECHNIQUE: Chest pain FINDINGS: The cardiomediastinal silhouette is within normal limits. There are no pleural effusions. There is no pulmonary vascular congestion. There is no pneumothorax. The lungs are clear. No significant osseous abnormality is identified. IMPRESSION: No acute cardiopulmonary process. Electronically signed by: Maren Dawkins MD (03/09/2019 8:57 PM) [facility] DICTATED and SIGNED BY: MAREN DAWKINS MD DATE: 03/09/192056 Course & Med Decision Making Course & Med Decision Making Pertinent Labs and Imaging studies reviewed. (See chart for details) Evaluation of patient in ER showed 59-year-old female patient with heart score of 3 brought in by EMS because of chest pain since this morning and leg cramping pain. Patient treated with nitroglycerin without change of pain but after Toradol and she felt better. Leg cramps improved with Norflex IV. Patient had unremarkable labs except for mild anemia and mild elevation of creatinine. Patient did not have routine colonoscopy and was advised to follow with her primary care physician for evaluation of anemia and possible referral to GI for colonoscopy. She also was advised to take ibuprofen and Naprosyn elevation of creatinine. Plan discharge patient home with diagnosis of noncardiac chest pain. Dragon Disclaimer Dragon Disclaimer This electronic medical record was generated, in whole or in part, using a voice recognition dictation system. Departure Departure Impression: Primary Impression: Non-cardiac chest pain Additional Impressions: Anemia Creatinine elevation Leg cramps Disposition: HOME, SELF-CARE (at 2212) Condition: IMPROVED Referrals: YOLANDA HUNTER MD (PCP) Patient Instructions: Anemia, FAQs, Chest Wall Pain, Leg Cramps Additional Instructions: Drink plenty of liquids Follow-up with your primary care physician in 3-5 days Return to ER if not getting better Continue home medication Scripts Acetaminophen With Codeine (TYLENOL WITH CODEINE #3 TABLET) 1 Each Tablet 1 TAB PO PRN Q6HRS PRN for PAIN, #10 TAB Prov: BRYANNA PETERSEN MD 03/09/19 The HEART Score for CP Pts HEART Score for Chest Pain: HEART Score for Chest Pain Response (Comments) Value History Moderately Suspicious 1 ECG Nonspecific Repolarizatio 1 Age >45 - < 65 1 Risk Factors No Risk Factors 0 Troponin < Normal Limit 0 Total 3 Risk Factors: Risk Factors: DM, Current or recent (<one month) smoker, HTN, HLP, family history of CAD, obesity. Risk Scores: Score 0 - 3: 2.5% MACE over next 6 weeks - Discharge Home Score 4 - 6: 20.3% MACE over next 6 weeks - Admit for Clinical Observation Score 7 - 10: 72.7% MACE over next 6 weeks - Early Invasive Strategies Problem Qualifiers Additional Impressions: Anemia Anemia type: unspecified type Qualified Codes: D64.9 - Anemia, unspecified BRYANNA PETERSEN MD Mar 09, 2019 21:08
[2019-03-09 21:14] LABS: BASO # 0.1 x10^3/uL (0.0-0.2); BASO % 1 % (0-3); EOS # 0.1 x10^3/uL (0.0-0.7); EOS % 1 % (0-3); HEMATOCRIT 32.4 % (36.0-47.0); HEMOGLOBIN 11.3 g/dL (12.0-15.5); LYMPH # 2.2 x10^3/uL (1.0-4.8); LYMPH % 26 % (24-48); MEAN CORPUSCULAR HEMOGLOBIN 29 pg (25-35); MEAN CORPUSCULAR HGB CONC 35 g/dL (31-37); MEAN CORPUSCULAR VOLUME 83 fL (79-100); MONO # 0.5 x10^3/uL (0.0-1.1); MONO % 5 % (0-9); NEUT # 5.9 x10^3/uL (1.8-7.7); NEUT % 67 % (31-73); PLATELET COUNT 256 x10^3/uL (140-400); RED BLOOD COUNT 3.91 x10^6/uL (3.50-5.40); RED CELL DISTRIBUTION WIDTH 14.2 % (11.5-14.5); WHITE BLOOD COUNT 8.7 x10^3/uL (4.0-11.0)
[2019-03-09 21:22] LABS: PROTHROMBIN TIME PATIENT 12.3 SEC (11.7-14.0)
[2019-03-09 21:24] LABS: CALCIUM 9.6 mg/dL (8.5-10.1); CREATININE 1.2 mg/dL (0.6-1.0); POTASSIUM 4.1 mmol/L (3.5-5.1)
[2019-03-09 21:29] LABS: ALBUMIN 3.4 g/dL (3.4-5.0); ALBUMIN/GLOBULIN RATIO 0.8 (1.0-1.7); MAGNESIUM 1.9 mg/dL (1.8-2.4); TOTAL BILIRUBIN 0.4 mg/dL (0.2-1.0); TOTAL PROTEIN 7.5 g/dL (6.4-8.2)
[2019-03-09] MEDS ORDERED: ACET-704 PO (22:14)
[2019-03-09 22:30] VITALS: BP 130/75
[2019-03-09] MEDS ORDERED: KETOROLAC 30 MG/ML VIAL. IV ONE (22:30)
--- NOTE | 2019-03-10 11:30 | EKG ---
[facility] [address] [place] [address] Test Date: 2019-03-09 Test Time: 20:16:31 Pat Name: GIBSON EID Department: Room: Gender: F [employer]: : 1960 Requested By: BRYANNA PETERSEN Order Number: [id number] Reading MD: Hernan Mann MD Measurements Intervals [place] Rate: 74 P: 152 MI: 148 QRS: 172 QRSD: 92 T: 145 QT: 368 QTc: 413 Interpretive Statements SINUS RHYTHM LIMB LEAD REVERSAL Electronically Signed On 03-19-2019 10:27:06 CDT by Hernan Mann MD
== END 2019-03-09 22:39 | disposition home or self-care (01) ==
LOC: ER 20:12
DX: R07.89 Other chest pain (principal); D64.9 Anemia, unspecified; R79.89 Other specified abnormal findings of blood chemistry; R25.2 Cramp and spasm; G43.909 Migraine, unspecified, not intractable, without status migrainosus; K21.9 Gastro-esophageal reflux disease without esophagitis; G89.29 Other chronic pain; Z88.0 Allergy status to penicillin; Z88.2 Allergy status to sulfonamides
CPT/HCPCS: 36415; 71045; 80053; 82550; 83690; 83735; 83880; 84484; 85025; 85610; 93005; 96374; 96375; 99285; J1885; J2360

== ENCOUNTER 2019-07-08 12:33 | Emergency (ER) | payer OTHER, MEDICAID ==
[~2019-07-08] VITALS: Ht 162.6 cm; Wt 81.8 kg
[~2019-07-08 12:33] MED LIST changes: +ACET-704 PO; +MECL-75 PO; -MECL25TA3 PO
[2019-07-08] MEDS ORDERED: cloNIDine HCL 0.1 MG TABLET PO ONE (13:45)
--- NOTE | 2019-07-08 13:46 | RAD ---
CHEST PA LATERAL History: Flulike symptoms, cough and fever for one week Comparison: March 09, 2019 Findings: 2 views of the chest are submitted. There is no infiltrate, pneumothorax, or effusion. Pericardial cardiac silhouette is within normal limits in size. There is again somewhat tortuous thoracic aorta. Impression: 1. There is no radiographic evidence of acute cardiopulmonary disease. Electronically signed by: Luiz Hull MD (07/08/2019 1:43 PM) [facility]
[2019-07-08] MEDS ORDERED: BENZ100C PO (14:24)
--- NOTE | 2019-07-08 14:25 | PHYS DOC ---
Past Medical History Past Medical History: Arthritis, Depression, Fibromyalgia, GERD, Migraines, Other Additional Past Medical Histor: INTERSTITIAL CYSTITIS,CHRONIC PAIN Past Surgical History: Hysterectomy, Other Additional Past Surgical Histo: BLADDER SLING Alcohol Use: Occasionally Drug Use: Marijuana Adult General Chief Complaint Chief Complaint: COUGH HPI HPI Patient is a 59 year old [f__sex] who presents with [] Review of Systems Review of Systems Constitutional: Denies fever or chills [] Eyes: Denies change in visual acuity, redness, or eye pain [] HENT: Denies nasal congestion or sore throat [] Respiratory: Denies cough or shortness of breath [] Cardiovascular: No additional information not addressed in HPI [] GI: Denies abdominal pain, nausea, vomiting, bloody stools or diarrhea [] : Denies dysuria or hematuria [] Musculoskeletal: Denies back pain or joint pain [] Integument: Denies rash or skin lesions [] Neurologic: Denies headache, focal weakness or sensory changes [] Endocrine: Denies polyuria or polydipsia [] All other systems were reviewed and found to be within normal limits, except as documented in this note. Current Medications Current Medications Current Medications Medications (Trade) Dose Ordered Sig/Soha Start Time Stop Time Status Last Admin Dose Admin Clonidine HCl (Catapres) 0.1 mg 1X ONCE 07/08/19 13:45 07/08/19 13:46 DC 07/08/19 14:19 0.1 MG Allergies Allergies Allergies Coded Allergies Type Severity Reaction Last Updated Verified Penicillins Allergy Intermediate rash 08/07/17 Yes Sulfa (Sulfonamide Antibiotics) Allergy Intermediate rash 08/07/17 Yes Physical Exam Physical Exam Constitutional: Well developed, well nourished, no acute distress, non-toxic appearance. [] HENT: Normocephalic, atraumatic, bilateral external ears normal, oropharynx moist, no oral exudates, nose normal. [] Eyes: PERRLA, EOMI, conjunctiva normal, no discharge. [] Neck: Normal range of motion, no tenderness, supple, no stridor. [] Cardiovascular:Heart rate regular rhythm, no murmur [] Lungs & Thorax: Bilateral breath sounds clear to auscultation [] Abdomen: Bowel sounds normal, soft, no tenderness, no masses, no pulsatile masses. [] Skin: Warm, dry, no erythema, no rash. [] Back: No tenderness, no CVA tenderness. [] Extremities: No tenderness, no cyanosis, no clubbing, ROM intact, no edema. [] Neurologic: Alert and oriented X 3, normal motor function, normal sensory function, no focal deficits noted. [] Psychologic: Affect normal, judgement normal, mood normal. [] Current Patient Data Vital Signs Vital Signs Date Time Temp Pulse Resp B/P (MAP) Pulse Ox O2 Delivery O2 Flow Rate FiO2 07/08/19 14:19 78 175/85 07/08/19 12:55 98.5 20 100 Room Air 98.5 EKG EKG [] Radiology/Procedures Radiology/Procedures [] Course & Med Decision Making Course & Med Decision Making Pertinent Labs and Imaging studies reviewed. (See chart for details) [] Dragon Disclaimer Dragon Disclaimer This electronic medical record was generated, in whole or in part, using a voice recognition dictation system. Departure Departure Impression: Primary Impression: Flu-like symptoms Additional Impression: Cough in adult patient Disposition: HOME, SELF-CARE Condition: STABLE Referrals: NO PCP (PCP) Patient Instructions: Influenza, Adult, [id number] Additional Instructions: Fill the prescription and take as directed. Alternate Tylenol and ibuprofen as needed for fever. Increase clear fluids and rest. Diet as tolerated. Recommend use of [id number] flu medications as needed for relief of your symptoms. Follow up with your primary care doctor if symptoms persist, return to the ER symptoms worsen. Scripts Benzonatate (TESSALON PERLE) 100 Mg Capsule 1 CAP PO TID PRN for COUGH for 7 Days, #21 CAP 0 Refills Prov: PADMINI GLEZ APRN 07/08/19 Problem Qualifiers PADMINI GLEZ APRN Jul 08, 2019 14:25
[2019-07-08 14:35] VITALS: BP 147/83
== END 2019-07-08 14:40 | disposition home or self-care (01) ==
LOC: ER 12:33
DX: R05 Cough (principal); G43.909 Migraine, unspecified, not intractable, without status migrainosus; K21.9 Gastro-esophageal reflux disease without esophagitis; G89.29 Other chronic pain; Z88.0 Allergy status to penicillin; Z88.2 Allergy status to sulfonamides
CPT/HCPCS: 71046; 99284

== ENCOUNTER 2019-07-24 21:46 | Emergency (ER) | payer OTHER, MEDICAID ==
[~2019-07-24] VITALS: Ht 162.6 cm; Wt 80.0 kg
[2019-07-24 21:48] VITALS: BP 185/89
[2019-07-24] MEDS ORDERED: MORPHINE SULFATE 10 MG/ML VIAL. IM ONE (23:30)
--- NOTE | 2019-07-24 23:30 | PHYS DOC ---
Past Medical History Past Medical History: Arthritis, Depression, Fibromyalgia, GERD, Migraines, Other Additional Past Medical Histor: INTERSTITIAL CYSTITIS,CHRONIC PAIN Past Surgical History: Hysterectomy, Other Additional Past Surgical Histo: BLADDER SLING Smoking Status: Never Smoker Alcohol Use: None Drug Use: Marijuana Adult General Chief Complaint Chief Complaint: LOWER EXT PAIN HPI HPI Patient is a 59 year old -[place]ian female who presents to the emergency department via EMS with complaints of bilateral lower extremity pain that starts in her feet and shoots up the legs. Patient reports a history of fibromyalgia and rheumatoid arthritis. She denies any redness, warmth, or swelling of her lower extremities. Patient states that the pain began at 9:00 this morning, she currently rates the pain a 10 out of 10 on pain scale she denies any alleviating or exacerbating factors. Patient states she has been taking Aleve and Flexeril at home with no relief of her pain. She denies any recent injury or fall. The patient denies any saddle anesthesia, back pain, or loss of bowel or bladder control. She denies any history of DVTs, PEs, blood clots, or clotting problems. She also denies any extended periods of inactivity or recent lengthy car rides or flights. Review of Systems Review of Systems All other ROS is negative unless otherwise noted in HPI. Current Medications Current Medications Current Medications Medications (Trade) Dose Ordered Sig/Soha Start Time Stop Time Status Last Admin Dose Admin Morphine Sulfate (Morphine Sulfate) 5 mg 1X ONCE 07/24/19 23:30 07/24/19 23:31 DC 07/24/19 23:12 5 MG Allergies Allergies Allergies Coded Allergies Type Severity Reaction Last Updated Verified Penicillins Allergy Intermediate rash 08/07/17 Yes Sulfa (Sulfonamide Antibiotics) Allergy Intermediate rash 08/07/17 Yes Physical Exam Physical Exam See Above Constitutional: Well developed, well nourished, no acute distress, non-toxic ap pearance. [] HENT: Normocephalic, atraumatic, bilateral external ears normal, nose normal. [] Eyes: PERRLA, EOMI, conjunctiva normal, no discharge. [] Neck: Normal range of motion, no stridor. [] Cardiovascular:Heart rate regular rhythm Lungs & Thorax: Respirations even and unlabored, no retractions, no respiratory distress Skin: Warm, dry, no erythema, no rash. Extremities: No cyanosis, no clubbing, ROM intact, no edema, no deformity of BLE [] Neurologic: Alert and oriented X 3, no focal deficits noted. [] Psychologic: Affect normal, judgement normal, mood normal. [] Current Patient Data Vital Signs Vital Signs Date Time Temp Pulse Resp B/P (MAP) Pulse Ox O2 Delivery O2 Flow Rate FiO2 07/24/19 23:12 18 98 Room Air 07/24/19 21:48 98.5 89 185/89 (121) 98.5 EKG EKG [] Radiology/Procedures Radiology/Procedures [] Course & Med Decision Making Course & Med Decision Making Pertinent Labs and Imaging studies reviewed. (See chart for details) Talked with the patient about her chronic pain with fibromyalgia and rheumatoid arthritis. Patient states that this pain is similar to previous pain is experienced only it is worse this time and her home medications are not helping. Advised patient that without any injury that there is no imaging that can be ordered. Patient has no history of DVTs, PEs, or blood clots. She denies any recent travel, or extensive periods of inactivity. I offered to give the patient an IM injection of morphine and then have the patient follow up with her primary care doctor and pain management as planned. The patient agreed with this plan. She states she would like a pain shot and then would like to go home. Patient was given 5 mg of IM morphine in the emergency department. She called for a Uber to take her home. Pt was able to ambulate in the ER. [] Dragon Disclaimer Dragon Disclaimer This electronic medical record was generated, in whole or in part, using a voice recognition dictation system. Departure Departure Impression: Primary Impression: Lower extremity pain, bilateral Disposition: 01 HOME, SELF-CARE Condition: STABLE Referrals: NO PCP (PCP) Patient Instructions: Musculoskeletal Pain Additional Instructions: Follow up with your primary care doctor for further pain management. Return to the ER if symptoms worsen. PADMINI GLEZ APRN Jul 24, 2019 23:30
== END 2019-07-24 23:30 | disposition home or self-care (01) ==
LOC: ER 21:46
DX: M79.605 Pain in left leg (principal); M79.604 Pain in right leg; G89.29 Other chronic pain; M79.7 Fibromyalgia; M06.9 Rheumatoid arthritis, unspecified; K21.9 Gastro-esophageal reflux disease without esophagitis; G43.909 Migraine, unspecified, not intractable, without status migrainosus; Z90.710 Acquired absence of both cervix and uterus; Z88.0 Allergy status to penicillin; Z88.2 Allergy status to sulfonamides
CPT/HCPCS: 96372; 99283; J2270